=== PATIENT | female | born 1990 | race African-American/Black ===

== ENCOUNTER 2020-08-15 11:04 | Emergency (ER) | payer MEDICAID, OTHER ==
[~2020-08-15] VITALS: Ht 175.3 cm; Wt 98.0 kg
[2020-08-15 11:09] VITALS: BP 152/103
[2020-08-15] MEDS ORDERED: SODIUM CHLORIDE 0.9% 1,000 ML IV ONE (11:45)
[2020-08-15] MEDS ORDERED: METOCLOPRAMIDE HCL 10MG/2ML VIAL IV ONE (11:45)
[2020-08-15 12:11] LABS: BASOPHILS % 0.7 % (0.0-2.0); EOSINOPHILS % 0.5 % (0.0-5.0); HEMATOCRIT. 42.4 % (36.0-48.0); HEMOGLOBIN. 14.4 g/dL (12.0-16.0); LYMPHOCYTES % 48.4 % (20.0-50.0); MEAN CORPUSCULAR HEMOGLOBIN 31.6 pg (28.0-32.0); MONOCYTES % 9.6 % (2.0-8.0); NEUTROPHILS % 40.8 % (40.0-76.0); PLATELET 203 x1000/uL (130-400); RED BLOOD CELL COUNT 4.56 mill/uL (4.2-5.4); RED CELL DISTRIBUTION WIDTH 13.9 % (11.6-14.6)
[2020-08-15 12:16] LABS: CLARITY URINE CLEAR (CLEAR); COLOR URINE YELLOW (YELLOW); KETONES URINE TRACE (NEGATIVE); LEUKOCYTE ESTERASE URINE NEGATIVE (NEGATIVE); NITRITE URINE NEGATIVE (NEGATIVE); OCCULT BLOOD URINE NEGATIVE (NEGATIVE); PROTEIN URINE TRACE (NEGATIVE); SPECIFIC GRAVITY URINE 1.027 (1.005-1.030)
[2020-08-15 12:19] LABS: CHLORIDE 104 mEq/L (98-107)
[2020-08-15 12:43] LABS: B-HCG QUANTITATIVE 47041 mIU/mL (<3)
[2020-08-15 12:45] LABS: *AMPHETAMINES SCREEN URINE NEGATIVE (NEGATIVE); *BENZODIAZEPINES SCREEN URINE NEGATIVE (NEGATIVE); *COCAINE SCREEN URINE NEGATIVE (NEGATIVE); OPIATES URINE SCREEN NEGATIVE (NEGATIVE); PHENCYCLIDINE URINE SCREEN NEGATIVE (NEGATIVE)
[2020-08-15 12:47] LABS: *BARBITURATES SCREEN URINE NEGATIVE (NEGATIVE)
[2020-08-15 13:01] LABS: CANNABINOID URINE SCREEN PRESUMTIVE POSITIVE (NEGATIVE); METHADONE URINE SCREEN NEGATIVE (NEGATIVE)
[2020-08-15] MEDS ORDERED: METO-293 MT (15:41)
== END 2020-08-15 15:54 | disposition home or self-care (01) ==
LOC: ER 11:04
DX: O21.8 Other vomiting complicating pregnancy (principal); O26.891 Other specified pregnancy related conditions, first trimester; R55 Syncope and collapse; R10.9 Unspecified abdominal pain; Z3A.01 Less than 8 weeks gestation of pregnancy
CPT/HCPCS: 36415; 76801; 76817; 80053; 80305; 81003; 84702; 85025; 86850; 86900; 86901; 93005; 96361; 96374; 99284; J2765; J7030; Z7610

== ENCOUNTER 2020-08-21 14:03 | Emergency (ER) | payer OTHER ==
[~2020-08-21] VITALS: Ht 172.7 cm; Wt 91.0 kg
[~2020-08-21 14:03] MED LIST: METO-293 MT
[2020-08-21] MEDS ORDERED: SODIUM CHLORIDE 0.9% 1,000 ML IV ONE ×2 (14:45→17:30)
[2020-08-21 15:17] LABS: BASOPHILS % 0.5 % (0.0-2.0); EOSINOPHILS % 0.8 % (0.0-5.0); HEMOGLOBIN. 14.3 g/dL (12.0-16.0); LYMPHOCYTES % 59.1 % (20.0-50.0); MEAN CORPUSCULAR HEMOGLOBIN 31.4 pg (28.0-32.0); MEAN CORPUSCULAR VOLUME 92.5 fL (81.0-99.0); MONOCYTES % 9.8 % (2.0-8.0); NEUTROPHILS % 29.8 % (40.0-76.0); PLATELET 189 x1000/uL (130-400); RED BLOOD CELL COUNT 4.54 mill/uL (4.2-5.4); RED CELL DISTRIBUTION WIDTH 13.4 % (11.6-14.6)
[2020-08-21 15:27] LABS: CHLORIDE 105 mEq/L (98-107)
[2020-08-21 15:52] LABS: B-HCG QUANTITATIVE 54001 mIU/mL (<3)
[2020-08-21] MEDS ORDERED: ONDANSETRON HCL 4MG/2ML INJ IV ONE ×2 (16:45→18:45)
[2020-08-21] MEDS ORDERED: ACETAMINOPHEN 325MG TABLET PO ONE (17:30)
[2020-08-21 19:20] VITALS: BP 107/75
== END 2020-08-21 19:24 | disposition home or self-care (01) ==
LOC: ER 14:03
DX: O26.891 Other specified pregnancy related conditions, first trimester (principal); O21.9 Vomiting of pregnancy, unspecified; D25.9 Leiomyoma of uterus, unspecified; R56.9 Unspecified convulsions; Z3A.01 Less than 8 weeks gestation of pregnancy
CPT/HCPCS: 36415; 76801; 76817; 80053; 84702; 85025; 86850; 86900; 86901; 93005; 96361; 96374; 96376; 99285; J2405; J7030

== ENCOUNTER 2020-09-05 10:34 | Emergency (ER) | payer OTHER ==
[~2020-09-05] VITALS: Ht 175.3 cm; Wt 93.0 kg
[2020-09-05 11:00] VITALS: BP 127/83
[2020-09-05 11:34] LABS: CLARITY URINE CLOUDY (CLEAR); COLOR URINE YELLOW (YELLOW); KETONES URINE TRACE (NEGATIVE); LEUKOCYTE ESTERASE URINE 1+ (NEGATIVE); NITRITE URINE NEGATIVE (NEGATIVE); OCCULT BLOOD URINE NEGATIVE (NEGATIVE); PROTEIN URINE NEGATIVE (NEGATIVE); SPECIFIC GRAVITY URINE 1.037 (1.005-1.030); UROBILINOGEN URINE 0.2 E.U./dL (0.2-1.0)
[2020-09-05 11:35] LABS: BASOPHILS % 0.5 % (0.0-2.0); EOSINOPHILS % 0.8 % (0.0-5.0); HEMATOCRIT. 41.1 % (36.0-48.0); HEMOGLOBIN. 13.9 g/dL (12.0-16.0); LYMPHOCYTES % 52.3 % (20.0-50.0); MEAN CORPUSCULAR HEMOGLOBIN 31.6 pg (28.0-32.0); MEAN CORPUSCULAR VOLUME 93.4 fL (81.0-99.0); MEAN PLATELET VOLUME 7.9 fl (7.4-10.4); MONOCYTES % 6.8 % (2.0-8.0); NEUTROPHILS % 39.6 % (40.0-76.0); PLATELET 228 x1000/uL (130-400); RED CELL DISTRIBUTION WIDTH 13.4 % (11.6-14.6)
[2020-09-05 11:41] LABS: CHLORIDE 102 mEq/L (98-107)
[2020-09-05] MEDS ORDERED: SODIUM CHLORIDE 0.9% 1,000 ML IV ONE (11:45)
[2020-09-05] MEDS ORDERED: ONDANSETRON HCL 4MG/2ML INJ IV ONE (11:45)
[2020-09-05 12:05] LABS: B-HCG QUANTITATIVE 37729 mIU/mL (<3)
[2020-09-05] MEDS ORDERED: CEPHALEXIN 250MG CAPSULE PO ONE (14:00)
[2020-09-05] MEDS ORDERED: ONDA4TAB5 MT (14:19)
[2020-09-05] MEDS ORDERED: CEPH250C2 MT (14:19)
== END 2020-09-05 15:07 | disposition home or self-care (01) ==
LOC: ER 10:34
DX: O02.0 Blighted ovum and nonhydatidiform mole (principal); O23.31 Infections of other parts of urinary tract in pregnancy, first trimester; Z3A.10 10 weeks gestation of pregnancy; F12.10 Cannabis abuse, uncomplicated; Z79.899 Other long term (current) drug therapy
CPT/HCPCS: 36415; 76801; 76817; 80053; 81003; 84702; 85025; 93005; 96361; 96374; 99285; J2405; J7030

== ENCOUNTER 2021-01-30 16:36 | Emergency (ER) | payer MEDICAID ==
[~2021-01-30] VITALS: Ht 175.3 cm; Wt 95.0 kg
[~2021-01-30 16:36] MED LIST changes: +CEPH250C2 MT; +ONDA4TAB5 MT
[2021-01-30 16:41] VITALS: BP 145/88
== END 2021-01-30 18:59 | disposition left against medical advice (07) ==
LOC: ER 18:15
DX: R68.89 Other general symptoms and signs (principal); Z53.21 Procedure and treatment not carried out due to patient leaving prior to being seen by health care provider

== ENCOUNTER 2021-02-09 13:31 | Emergency (ER) | payer MEDICAID, OTHER ==
[~2021-02-09] VITALS: Ht 170.2 cm; Wt 94.0 kg
[2021-02-09] MEDS ORDERED: ACETAMINOPHEN 325MG TABLET PO STA (14:30)
[2021-02-09] MEDS ORDERED: SODIUM CHLORIDE 0.9% 1,000 ML IV ONE (14:30)
[2021-02-09 15:53] LABS: BASOPHILS % 0.7 % (0.0-2.0); EOSINOPHILS % 0.4 % (0.0-5.0); HEMATOCRIT. 43.2 % (36.0-48.0); HEMOGLOBIN. 14.6 g/dL (12.0-16.0); LYMPHOCYTES % 44.1 % (20.0-50.0); MEAN CORPUSCULAR HEMOGLOBIN 30.6 pg (28.0-32.0); MEAN CORPUSCULAR VOLUME 90.4 fL (81.0-99.0); MEAN PLATELET VOLUME 8.8 fl (7.4-10.4); MONOCYTES % 8.2 % (2.0-8.0); NEUTROPHILS % 46.6 % (40.0-76.0); PLATELET 183 x1000/uL (130-400); RED BLOOD CELL COUNT 4.78 mill/uL (4.2-5.4); RED CELL DISTRIBUTION WIDTH 13.6 % (11.6-14.6)
[2021-02-09 16:02] LABS: CHLORIDE 109 mEq/L (98-107)
[2021-02-09] MEDS ORDERED: ALBU6.7H9 INH (18:24)
[2021-02-09] MEDS ORDERED: ACET-2708 MT (18:24)
[2021-02-09 18:30] VITALS: BP 122/77
== END 2021-02-09 19:49 | disposition home or self-care (01) ==
LOC: ER 13:31
DX: U07.1 COVID-19 (principal); R07.89 Other chest pain; F12.10 Cannabis abuse, uncomplicated
CPT/HCPCS: 36415; 71045; 80053; 85025; 93005; 99285; J7030

== ENCOUNTER 2021-03-10 14:42 | Emergency (ER) | payer MEDICAID, OTHER ==
[~2021-03-10] VITALS: Ht 175.3 cm; Wt 96.0 kg
[~2021-03-10 14:42] MED LIST changes: +ACET-2708 MT; +ALBU6.7H9 INH
[2021-03-10] MEDS ORDERED: CEPH500C2 MT (15:11)
[2021-03-10 15:23] VITALS: BP 131/76
== END 2021-03-10 15:24 | disposition home or self-care (01) ==
LOC: ER 14:42
DX: L03.115 Cellulitis of right lower limb (principal)
CPT/HCPCS: 99283

== ENCOUNTER 2022-11-25 19:31 | Emergency (ER) | payer OTHER ==
[~2022-11-25] VITALS: Ht 175.3 cm; Wt 106.2 kg
[~2022-11-25 19:31] MED LIST changes: +ALBU6.7H3 INH; -ALBU6.7H9 INH; +CEPH500C2 MT
[2022-11-25 20:07] LABS: BASOPHILS % 0.6 % (0.0-2.0); EOSINOPHILS % 1.6 % (0.0-5.0); HEMATOCRIT. 37.4 % (36.0-48.0); HEMOGLOBIN. 12.6 g/dL (12.0-16.0); LYMPHOCYTES % 36.6 % (20.0-50.0); MEAN CORPUSCULAR HEMOGLOBIN 30.2 pg (28.0-32.0); MEAN CORPUSCULAR VOLUME 89.3 fL (81.0-99.0); MEAN PLATELET VOLUME 8.1 fl (7.4-10.4); NEUTROPHILS % 53.2 % (40.0-76.0); PLATELET 185 x1000/uL (130-400); RED BLOOD CELL COUNT 4.19 mill/uL (4.2-5.4); RED CELL DISTRIBUTION WIDTH 16.1 % (11.6-14.6)
[2022-11-25 20:14] LABS: CHLORIDE 108 mEq/L (98-107)
[2022-11-25] MEDS ORDERED: ONDANSETRON 4MG ODT PO ONE (21:30)
[2022-11-25] MEDS ORDERED: FAMOTIDINE 20MG TABLET PO ONE (21:45)
[2022-11-25] MEDS ORDERED: ONDANSETRON 4MG ODT PO NR (23:00)
[2022-11-26] MEDS ORDERED: TRAM-529 MT (01:39)
[2022-11-26 01:50] VITALS: BP 132/76
[2022-11-26 01:51] LABS: HCG SCREEN POSITIVE
== END 2022-11-26 01:51 | disposition home or self-care (01) ==
LOC: ER 19:31
DX: O26.891 Other specified pregnancy related conditions, first trimester (principal); Z3A.01 Less than 8 weeks gestation of pregnancy; F12.10 Cannabis abuse, uncomplicated; Z79.899 Other long term (current) drug therapy
CPT/HCPCS: 36415; 80053; 84703; 85025; 99283; Q0162